=== PATIENT | female | born 1985 | race Two or more races ===

== ENCOUNTER 2019-05-26 20:27 | Emergency (ER) | payer OTHER ==
[~2019-05-26] VITALS: Ht 157.5 cm; Wt 72.7 kg
[2019-05-26 20:48] VITALS: BP 128/77
[2019-05-27] MEDS ORDERED: HYDROcodone-ACET 10/325MG TAB PO ONE
[2019-05-27] MEDS ORDERED: BACLOFEN 10 MG TAB PO ONE
== END 2019-05-27 00:23 | disposition home or self-care (01) ==
LOC: ER 20:30
DX: M62.838 Other muscle spasm (principal)
CPT/HCPCS: 72128; 72131

== ENCOUNTER 2022-04-19 10:25 | Emergency (ER) | payer MEDICAID, OTHER ==
[~2022-04-19] VITALS: Ht 157.5 cm; Wt 80.0 kg
[2022-04-19] MEDS: ASPirin 325 MG TAB PO ONE ×2 (10:44→10:52)
[2022-04-19 11:02] LABS: Basophils # (auto) 0 10 ^3/uL (0-0.2); Basophils % (auto) 0.3 % (0.0-2.0); Eosinophils # (auto) 0 10 ^3/uL (0-0.8); Eosinophils % (auto) 0.4 % (0.0-7.0); Hematocrit 42.7 % (36.0-46.0); Hemoglobin 14.4 g/dL (12.2-16.2); Lymphocytes # (auto) 1.6 10 ^3/uL (0.4-5.4); Lymphocytes % (auto) 27.4 % (10.0-50.0); Mean Corpuscular Hemoglobin 29.2 pg (28.0-32.0); Mean Corpuscular Hgb Conc. 33.7 g/dL (32.0-36.0); Mean Corpuscular Volume 86.9 fL (80.0-100.0); Monocytes # (auto) 0.4 10 ^3/uL (0-1.3); Monocytes % (auto) 7.6 % (0.0-12.0); Neutrophils # (auto) 3.7 10 ^3/uL (1.6-8.6); Neutrophils % (auto) 64.3 % (37.0-80.0); Red Blood Cells 4.92 10^6/uL (4.0-5.20); Red Cell Distribution Width 12.6 % (11.8-14.3); White Blood Cell 5.7 10^3/uL (4.4-10.8)
[2022-04-19 11:17] LABS: Albumin 4.1 g/dL (3.4-5.0); Calcium 9.4 mg/dL (8.5-10.1); Potassium 4.2 mmol/L (3.5-5.1)
[2022-04-19 11:19] LABS: BUN/Creatinine Ratio 15.5; Bilirubin, Total 0.8 mg/dL (0.2-1.0); Total Protein 8.2 g/dL (6.4-8.2)
[2022-04-19 12:23] LABS: Urine Bacteria FEW /hpf (None Seen); Urine Blood Negative /uL (Negative); Urine Hyaline Cast FEW /lpf (0 - 2); Urine Mucus FEW (None Seen); Urine Specific Gravity 1.016 (1.001-1.035); Urine WBC 9 /hpf (0 - 5)
[2022-04-19] MEDS ORDERED: NITR-87 PO (12:55)
[2022-04-19 14:56] VITALS: BP 114/72
== END 2022-04-19 15:02 | disposition home or self-care (01) ==
LOC: ER 10:25
DX: R07.89 Other chest pain (principal); N39.0 Urinary tract infection, site not specified
CPT/HCPCS: 36415; 71045; 80053; 81001; 83880; 84484; 85025; 85379; 93005

== ENCOUNTER → 2022-09-26 | Emergency (ER) | payer MEDICAID ==
[~2022-09-26] VITALS: Ht 157.5 cm; Wt 83.8 kg
[~2022-09-26] MED LIST: NITR-87 PO
[2022-09-26 08:55] VITALS: BP 93/56
== END | disposition left against medical advice (07) ==
LOC: ER 06:35
DX: R50.9 Fever, unspecified (principal); M79.10 Myalgia, unspecified site; R11.0 Nausea; Z53.21 Procedure and treatment not carried out due to patient leaving prior to being seen by health care provider

== ENCOUNTER 2024-02-18 18:28 | Emergency (ER) | payer MEDICAID ==
[~2024-02-18] VITALS: Ht 157.5 cm; Wt 73.0 kg
[~2024-02-18 18:28] MED LIST changes: +BACDST PO; +DICL75TA2 PO
[2024-02-18 21:49] VITALS: BP 96/63; PULSE 87; RESP 19; TEMP 98; O2SAT 100
[2024-02-18] MEDS: LIDOCAINE 1% HCL (LOCAL ANESTH.) INJ 20ML MDV ID ONE (22:06)
[2024-02-18] MEDS ORDERED: IBUP-1456 PO (23:13)
== END 2024-02-18 23:32 | disposition home or self-care (01) ==
LOC: ER 18:28
DX: S61.211A Laceration without foreign body of left index finger without damage to nail, initial encounter (principal); J45.909 Unspecified asthma, uncomplicated; Z98.890 Other specified postprocedural states; Z88.8 Allergy status to other drugs, medicaments and biological substances; Z79.899 Other long term (current) drug therapy; W22.8XXA Striking against or struck by other objects, initial encounter; Y93.G1 Activity, food preparation and clean up; Y92.89 Other specified places as the place of occurrence of the external cause; Y99.8 Other external cause status
CPT/HCPCS: 12001; 73200; J2001